=== PATIENT | male | born 1980 | race Caucasian/White ===

== ENCOUNTER 2019-01-20 22:37 | Emergency (ER) | payer OTHER ==
[~2019-01-20] VITALS: Ht 185.4 cm; Wt 103.4 kg
[~2019-01-20 22:37] MED LIST: ALBU90OI INH; Amoxicillin500 MG PO; CIPR500 PO; CLOT1TC TOP; Cleocin HCl300 MG PO; Crutch1 EACH MISC; HYDACE5 PO; IBUP600 PO; IBUP800 PO; LORA1 PO; METO25ER PO; METPRE4DP PO; NAPR500 PO; Naprosyn375 MG PO; Naprosyn500 MG PO; Norco 5-325 Ta1 EACH PO; ONDA4ODT MM; Percocet 5-3251 EACH PO; Prednisone10 MG PO; RXOXYACE PO; TRAM50 PO; TRIA80TC TOP; Veetids 500500 MG PO
[2019-01-21] MEDS ORDERED: PENVK500 PO (01:01)
[2019-01-21] MEDS ORDERED: Naprosyn500 MG PO (01:01)
== END 2019-01-21 01:15 | disposition home or self-care (01) ==
LOC: ER 22:37
DX: K02.9 Dental caries, unspecified (principal); Z91.018 Allergy to other foods; Z87.891 Personal history of nicotine dependence
CPT/HCPCS: 99282

== ENCOUNTER 2019-07-11 10:34 | Emergency (ER) | payer OTHER ==
[~2019-07-11] VITALS: Ht 185.4 cm; Wt 98.4 kg
[~2019-07-11 10:34] MED LIST changes: +PENVK500 PO
[2019-07-11] MEDS ORDERED: IBUP800 PO (11:35)
== END 2019-07-11 11:41 | disposition home or self-care (01) ==
LOC: ER 10:34
DX: S52.501A Unspecified fracture of the lower end of right radius, initial encounter for closed fracture (principal); Z91.018 Allergy to other foods; Z87.891 Personal history of nicotine dependence; W10.9XXA Fall (on) (from) unspecified stairs and steps, initial encounter
CPT/HCPCS: 29125; 73110; 99283-25

== ENCOUNTER 2020-08-28 14:12 | Emergency (ER) | payer OTHER ==
[~2020-08-28] VITALS: Ht 185.4 cm; Wt 99.8 kg
[2020-08-28] MEDS ORDERED: Prednisone20 MG PO (14:31)
== END 2020-08-28 14:43 | disposition home or self-care (01) ==
LOC: ER 14:12
DX: L23.7 Allergic contact dermatitis due to plants, except food (principal); Z91.018 Allergy to other foods; Z87.891 Personal history of nicotine dependence
CPT/HCPCS: 99282; J7512

== ENCOUNTER 2021-09-06 08:49 | Emergency (ER) | payer OTHER ==
[~2021-09-06] VITALS: Ht 185.4 cm; Wt 108.9 kg
[~2021-09-06 08:49] MED LIST changes: +Prednisone20 MG PO
== END 2021-09-06 09:57 | disposition home or self-care (01) ==
LOC: ER 08:49
DX: R19.8 Other specified symptoms and signs involving the digestive system and abdomen (principal); Z91.018 Allergy to other foods; Z87.891 Personal history of nicotine dependence
CPT/HCPCS: 99282

== ENCOUNTER 2022-01-04 17:04 | Emergency (ER) | payer OTHER ==
[~2022-01-04] VITALS: Ht 185.4 cm; Wt 99.8 kg
[2022-01-04] MEDS ORDERED: NAPR500 PO (19:36)
== END 2022-01-04 19:56 | disposition home or self-care (01) ==
LOC: ER 17:04
DX: M25.562 Pain in left knee (principal); Z91.018 Allergy to other foods; Z87.891 Personal history of nicotine dependence
CPT/HCPCS: 73562-LT; 96374; 99283-25; J1885